=== PATIENT | male | born 1985 | race Two or more races ===

== ENCOUNTER 2023-02-27 16:35 | Emergency (ER) | payer OTHER ==
[~2023-02-27] VITALS: Ht 165.1 cm; Wt 63.5 kg
[2023-02-27 16:42] VITALS: TEMP 97.9
--- NOTE | 2023-02-27 16:45 | NUR ---
Pt refuses any and all intervention at this time and states to the [employer] Officer "I dont want any treatment cant I just go?" made aware
[2023-02-27 17:51] VITALS: BP 105/65
--- NOTE | 2023-02-27 17:51 | NUR ---
pt seen and evvaluated by dr lopez. medically cleared. d/c to [employer] in stable condition.
[2023-02-27 17:52] VITALS: O2SAT 97
[2023-02-27] MEDS ORDERED: TDAP [DIPH/PERTUSSIS/TET] 0.5 ML VIAL IM ONE (18:00)
== END 2023-02-27 17:54 ==
LOC: ER 16:52
DX: S01.111A Laceration without foreign body of right eyelid and periocular area, initial encounter (principal); V48.5XXA Car driver injured in noncollision transport accident in traffic accident, initial encounter; Y93.89 Activity, other specified; Y92.89 Other specified places as the place of occurrence of the external cause; Y99.8 Other external cause status